=== PATIENT | male | born 1945 | race Caucasian/White ===

== ENCOUNTER 2016-08-07 10:57 | Observation (INO) | payer MEDICARE ==
[~2016-08-07] VITALS: Ht 175.3 cm; Wt 109.3 kg
[2016-08-07] MEDS ORDERED: ALBUAER3 INH (14:45)
[2016-08-07] MEDS ORDERED: METO100T PO (14:45)
[2016-08-07] MEDS ORDERED: FENO1CAP29 PO (14:45)
[2016-08-07] MEDS ORDERED: ASPI-110 PO (14:45)
[2016-08-07] MEDS ORDERED: SYMB160A INH (14:45)
[2016-08-07] MEDS ORDERED: VITA100064 PO (14:45)
[2016-08-07] MEDS ORDERED: ROSU40 PO (14:45)
[2016-08-07] MEDS ORDERED: VITA200013 (14:45)
[2016-08-07] MEDS ORDERED: PLAV75TA29 PO (14:45)
[2016-08-07] MEDS ORDERED: SERT-129 PO (14:45)
[2016-08-07] MEDS ORDERED: VALS1TAB70 PO (14:45)
[2016-08-07] MEDS ORDERED: MULT1TAB84 PO (14:45)
[2016-08-12] VITALS (7 sets, daily range): BP systolic 120–158; BP diastolic 72–100; PULSE 71–90; RESP 18; TEMP 97.4–98; O2SAT 93–98
[2016-08-12] MEDS ORDERED: PROTAMINE SULFATE 50 MG/5 ML VIAL ONE (07:11)
[2016-08-12] MEDS ORDERED: HEPARIN SODIUM - IV 10,000 UNITS/10 ML VIAL ONE (07:11)
[2016-08-12] MEDS ORDERED: POVIDONE IODINE 5% (ANTISEPSIS KIT) 4 APPLICATIONS EACH NARE PRN (07:45)
[2016-08-12] MEDS ORDERED: CHLORHEXIDINE GLUCONATE 2 % 1 PACK (2 CLOTHS) TOPICAL PRN (07:45)
[2016-08-12] MEDS ORDERED: SODIUM CHLORID 0.9% 500 ML IV PRN (07:45)
[2016-08-12] MEDS ORDERED: METOPROLOL TARTRATE 25 MG TAB PO PRN (07:45)
[2016-08-12] MEDS ORDERED: LACTATED RINGER'S 1000 ML IV PRN (07:45)
[2016-08-12] MEDS ORDERED: INSULIN HUMAN REGULAR 1,000 UNITS/10 ML VIAL SQ PRN (07:45)
[2016-08-12] MEDS ORDERED: fentaNYL CITRATE 250 MCG/5 ML AMP ONE (08:14)
[2016-08-12] MEDS ORDERED: MIDAZOLAM HCL 2 MG/2 ML VIAL ONE (08:14)
[2016-08-12] MEDS ORDERED: FAMOTIDINE 20 MG/2 ML VIAL ONE (08:15)
[2016-08-12] MEDS ORDERED: DEXAMETHASONE SOD PHOS 4 MG/ML VIAL ONE (08:15)
--- NOTE | 2016-08-12 08:26 | PD.VS.PN ---
Pre-operative Note Pre-operative diagnosis: enlarging AAA after EVAR and EVAR revision Planned procedure: EVAR revision, possible embolization Interval History: Pt has been feeling well since I saw him in clinic. No change in history. Ready for surgery. Labs: Hct 44 plt 193 INR 1.0 Blood: T&S Orders: NPO Ancef 2g IV OCTOR Post-operative destination: PACU, then [facility] Operative site marked: No (B groin surgery) Consent: Informed consent has been obtained from Karthik Ricardo. I have explained the procedure in detail and discussed the risks, benefits, and potential complications. All questions have been answered. Patient contact information: [phone] Daniel Gibson MD Aug 12, 2016 08:26
[2016-08-12] MEDS ORDERED: ceFAZolin 2 GM PREMIX 50 ML ONE (08:50)
[2016-08-12] MEDS ORDERED: IOHEXOL 300 MG/ML 100 ML BTL (for Rad CT) OTHER ONE (09:10)
--- NOTE | 2016-08-12 09:54 | HHI.PR ---
Immediate Post Op Note Procedure Date: Aug 12, 2016 Pre Op Diagnosis: EVAR with possible endoleak Post Op Diagnosis: EVAR with type II endoleak, no types I or III Surgeon: Daniel Gibson Electric Plater(s): none Procedure: Aortogram IVCavagram IVUS Findings: type II endoleak, no type I or III Complications: none apparent Specimen(s) removed: none Estimated blood loss: 10 mL Anesthesia: General Drains: None Fluids: 1200 mL x'oid Patient to: PACU Patient Condition: Good Implant/Devices: SEE IMPLANT LOG (if applicable) Date/Time of Procedure: SEE SURGICAL CARE RECORD Daniel Gbison MD Aug 12, 2016 09:54
[2016-08-12] MEDS ORDERED: ALBUTEROL SULFATE 90 MCG/ACT HFA 18 GM INHALER INH PRN (10:45)
[2016-08-12] MEDS ORDERED: DO NOT ADM ANY ANTICOAGULANT DRUGS PRN (11:15)
[2016-08-12] MEDS ORDERED: IOHEXOL 300 MG/ML 50 ML BTL (for RAD DIAG) ONE (12:54)
[2016-08-12] MEDS ORDERED: ePHEDrine/NS 25 MG/5 ML SYR IV ONE (12:57)
[2016-08-12] MEDS ORDERED: PROPOFOL 200 MG/20 ML AMP IV ONE (12:57)
[2016-08-12] MEDS ORDERED: PHENYLEPH/NS 1000 MCG/10 ML SYR IV ONE (12:58)
[2016-08-12] MEDS ORDERED: NEOSTIGMINE 3 MG/3 ML SYR IV ONE (12:58)
[2016-08-12] MEDS ORDERED: NORMOSOL R INJ 1,000 ML IV ONE (12:58)
[2016-08-12] MEDS ORDERED: ONDANSETRON HCL 4 MG/2 ML VIAL IV PUSH ONE (12:58)
[2016-08-12] MEDS: SERTRALINE HCL 100 MG TAB PO SCH (21:04)
[2016-08-13] VITALS (29 sets, daily range): BP systolic 88–143; BP diastolic 53–83; PULSE 65–94; RESP 17–18; TEMP 97.5–98; O2SAT 95–98
[2016-08-13 06:01] LABS: HEMATOCRIT 43.1 % (39.0-51.0); MEAN CELL VOLUME 87.7 FL (80.0-100.0); MEAN CORPUSCULAR HEMOGLOBIN 29.1 PG (27.0-34.0); MEAN CORPUSCULAR HGB CONC 33.1 % (32.0-36.0); PLATELET COUNT 166 TH/MM3 (150-450); RED BLOOD COUNT 4.91 MIL/MM3 (4.50-5.90); RED CELL DISTRIBUTION WIDTH 13.8 % (11.6-17.2); REVIEW FLAG FINAL; WHITE BLOOD COUNT 12.9 TH/MM3 (4.0-11.0)
[2016-08-13 06:33] LABS: BICARBONATE 29.5 MEQ/L (21.0-32.0)
--- NOTE | 2016-08-13 06:58 | PD.VS.PN ---
Subjective POD #: 1 Procedure(s): Angiogram/venogram for EVAR with endoleak that turned out to be type II Subjective/Hospital Course No operative intervention required yesterday because turned out to be type II No abdominal pain overnight Was retaining urine and finn placed for bladder scan with 1000mL Objective Vitals/I&O Date Time Temp Pulse Resp B/P Pulse Ox O2 Delivery O2 Flow Rate FiO2 08/13/16 06:00 90 08/13/16 05:00 90 08/13/16 04:20 98.0 93 18 107/70 98 08/13/16 04:00 84 08/13/16 03:10 98 Room Air 08/13/16 03:00 82 08/13/16 02:00 84 08/13/16 01:00 84 08/13/16 00:00 79 08/12/16 23:40 98.0 90 18 156/93 98 08/12/16 23:00 94 Room Air 08/12/16 23:00 74 08/12/16 23:00 97.8 74 18 144/86 94 08/12/16 19:00 97.4 89 18 149/95 93 08/12/16 19:00 93 Room Air 08/12/16 15:15 Room Air 08/12/16 15:15 97.8 78 18 158/100 94 08/12/16 15:15 78 08/12/16 13:09 97 Nasal Cannula 3.00 08/12/16 11:25 3 Nasal Cannula 3.00 08/12/16 11:25 71 08/12/16 11:25 97.4 71 18 120/72 98 08/12/16 11:00 69 20 93/63 98 Nasal Cannula 3 08/12/16 10:45 73 20 93/57 96 Nasal Cannula 4 08/12/16 10:26 97.4 75 20 119/66 96 Simple Mask 6 08/12/16 07:35 98.0 71 18 151/92 97 Exam: abd soft, NT groin ok Finn with clear urine Laboratory Laboratory Tests Test 08/12/16 08/12/16 08/13/16 07:45 07:50 05:53 Blood Type A POSITIVE A POSITIVE Antibody Screen NEGATIVE Crossmatch Leukocyte-Reduced Red Blood Cells Blood Bank Comment White Blood Count 12.9 Red Blood Count 4.91 Hemoglobin 14.3 Hematocrit 43.1 Mean Corpuscular Volume 87.7 Mean Corpuscular Hemoglobin 29.1 Mean Corpuscular Hemoglobin 33.1 Concent Red Cell Distribution Width 13.8 Platelet Count 166 Mean Platelet Volume 7.7 Sodium Level 141 Potassium Level 4.0 Chloride Level 104 Carbon Dioxide Level 29.5 Anion Gap 8 Blood Urea Nitrogen 15 Creatinine 1.01 Estimat Glomerular Filtration 73 Rate Random Glucose 122 Calcium Level 9.2 Assessment and Plan Plan OOB ad rhys reg diet Andres mendez in a.m. 08/14 Discharge Planning D/c tomorrow hopefully without Daniel Drew MD Aug 13, 2016 06:57
[2016-08-13] MEDS: VALSARTAN 160 MG TAB PO SCH (08:42)
[2016-08-13] MEDS: FENOFIBRATE 145 MG TAB PO SCH (08:42)
[2016-08-13] MEDS: CLOPIDOGREL 75 MG TAB PO SCH (08:42)
[2016-08-13] MEDS: METOPROLOL TARTRATE 100 MG TAB PO SCH (08:42)
[2016-08-13] MEDS: CHOLECALCIFEROL (VIT D3) 1000 UNIT TAB PO SCH (08:43)
[2016-08-13] MEDS: MULTIVITAMINS/MINERALS THERAPEUTIC TAB PO SCH (08:43)
[2016-08-13] MEDS: ENOXAPARIN SODIUM 30 MG/0.3 ML SYRINGE SQ SCH (08:43)
[2016-08-13] MEDS: ASPIRIN EC 81 MG TABEC PO SCH (08:43)
[2016-08-13] MEDS: ATORVASTATIN 80 MG TAB PO SCH (08:45)
[2016-08-13] MEDS: SERTRALINE HCL 100 MG TAB PO SCH (20:21)
[2016-08-14] VITALS (15 sets, daily range): BP systolic 125–137; BP diastolic 75–91; PULSE 61–90; RESP 18; TEMP 97.5–98.2; O2SAT 95–97
[2016-08-14 06:45] LABS: BICARBONATE 31.5 MEQ/L (21.0-32.0); POTASSIUM 3.9 MEQ/L (3.5-5.1)
--- NOTE | 2016-08-14 07:18 | PD.VS.PN ---
Subjective POD #: 2 Procedure(s): Angiogram/venogram for EVAR with endoleak that turned out to be type II Subjective/Hospital Course Pt doing well, no abdominal or groin pain. Walking Cole po. Campos removed this morning. Objective Vitals/I&O Date Time Temp Pulse Resp B/P Pulse Ox O2 Delivery O2 Flow Rate FiO2 08/14/16 05:00 90 08/14/16 05:00 75 08/14/16 04:31 98.2 69 18 137/75 95 08/14/16 04:00 86 08/14/16 03:00 82 08/14/16 02:00 82 08/14/16 01:11 96 Room Air 08/14/16 01:00 78 08/14/16 00:00 74 08/13/16 23:33 98.0 74 18 143/83 98 08/13/16 23:00 69 08/13/16 22:00 82 08/13/16 21:00 78 08/13/16 20:00 82 08/13/16 19:45 98.0 76 18 116/76 98 08/13/16 19:45 96 Room Air 08/13/16 19:00 79 08/13/16 18:03 75 08/13/16 17:17 73 08/13/16 16:10 71 08/13/16 15:53 95 Room Air 08/13/16 15:17 97.9 70 18 104/69 95 08/13/16 15:00 65 08/13/16 14:00 68 08/13/16 13:00 66 08/13/16 12:46 70 08/13/16 12:10 95 Room Air 08/13/16 11:29 97.5 77 88/53 95 98/67 08/13/16 11:00 83 08/13/16 10:41 73 08/13/16 09:00 92 08/13/16 08:00 94 08/14/16 08/14/16 08/14/16 07:00 15:00 23:00 Intake Total 480 ml Output Total 1000 ml Balance -520 ml Exam: R groin with mild ecchymoses no hematoma Laboratory Laboratory Tests Test 08/14/16 05:57 Sodium Level 141 Potassium Level 3.9 Chloride Level 103 Carbon Dioxide Level 31.5 Anion Gap 7 Blood Urea Nitrogen 16 Creatinine 0.95 Estimat Glomerular Filtration 79 Rate Random Glucose 100 Calcium Level 9.0 Assessment and Plan Plan doing well await to see if voids If so, can be d/c today with RTC 6 weeks with CTA post-op EVAR (3 phase) If not able to void, will replace Campos and D/C home with Campos. He has a local urologist should that be needed. Discharge Planning Today with or without Campos Daniel Gibson MD Aug 14, 2016 07:18
--- NOTE | 2016-08-14 07:41 | MP ---
cc: DANIEL GIBSON MD DATE OF SURGERY 08/12/2016 PREOPERATIVE DIAGNOSIS Endoleak after abdominal aortic aneurysm. POSTOPERATIVE DIAGNOSIS Type II endoleak. PROCEDURE 1. Aortogram. 2. Inferior venacavogram. 3. Intravascular ultrasound of inferior vena cava. ATTENDING SURGEON Daniel Gibson MD ANESTHESIA General. INDICATIONS Mr. Ricardo is a 70-year-old gentleman with a history of an EVAR sometime ago. He was noted to have an enlarging aneurysm sac potentially and was taken to the operating room for angiographic evaluation and potential treatment. A preoperative CT scan was inadequate to determine the source of the endoleak. DESCRIPTION OF PROCEDURE Informed consent obtained. The patient was taken to the operating room and placed supine on the operating room table. An appropriate time-out was taken to identify the patient, the operative site and the planned procedure. 2 grams of Kefzol was initiated prior to the skin incision and will be discontinued after a single preoperative dose. Everyone in the room agreed with the time-out and we proceeded. He was prepped from his nipples to his knees. A 21-gauge micropuncture needle was used to access the right common femoral artery. This was exchanged using Seldinger technique through the micropuncture sheath through which a 0.025 Stork wire was introduced and the micropuncture sheath was exchanged for a 5-Panamanian sheath. A VCF catheter was placed over the wire into the sheath and the aortogram in multiple obliquities was obtained. This aortogram showed that there was no Type I or III endoleak but appeared to be a Type II endoleak. We then attempted to perform a transcaval embolization. A 21-gauge micropuncture needle was used to access the right common femoral vein. This exchanged using Seldinger technique through the micropuncture sheath through which a 0.025 Stork wire was introduced and the micropuncture sheath was exchanged for an 8-Panamanian sheath. Intravascular ultrasound catheter was placed over the wire and into the sheath. Ultrasound images were obtained and this showed the direct apposition of the aneurysm sac with the inferior vena cava. The IVUS catheter was removed and the Stork wire was reintroduced. The 8-Panamanian sheath was upsized to a 10-Panamanian sheath and a Rosch-Uchida needle puncture kit was attempted to be placed. Multiple passes were made but we were unable to enter the aortic sac. At completion the venacavogram showed no contrast extravasation of the retroperitoneum. The wire, catheter and sheath were removed and pressure was held on the vein. The 5-Panamanian sheath in the artery was removed and the artery was closed with AngioSeal. There were no complications. I was present and scrubbed and performed the entire procedure. Daniel Gibson MD RJCarl/SSB /9:32 PM /7:20 AM
[2016-08-14] MEDS: VALSARTAN 160 MG TAB PO SCH (09:00)
[2016-08-14] MEDS: CHOLECALCIFEROL (VIT D3) 1000 UNIT TAB PO SCH (09:12)
[2016-08-14] MEDS: MULTIVITAMINS/MINERALS THERAPEUTIC TAB PO SCH (09:12)
[2016-08-14] MEDS: ATORVASTATIN 80 MG TAB PO SCH (09:14)
[2016-08-14] MEDS: ASPIRIN EC 81 MG TABEC PO SCH (09:14)
[2016-08-14] MEDS: FENOFIBRATE 145 MG TAB PO SCH (09:14)
[2016-08-14] MEDS: CLOPIDOGREL 75 MG TAB PO SCH (09:14)
[2016-08-14] MEDS: METOPROLOL TARTRATE 100 MG TAB PO SCH (09:14)
[2016-08-14] MEDS: ENOXAPARIN SODIUM 30 MG/0.3 ML SYRINGE SQ SCH (09:14)
--- NOTE | 2016-08-14 09:19 | PD.VS.DC ---
Discharge Summary Admission Date: Aug 12, 2016 at 06:39 Discharge Date: Aug 14, 2016 Admission Diagnosis: (1) AAA (abdominal aortic aneurysm) Discharge Diagnosis: (1) AAA (abdominal aortic aneurysm) Status: Chronic Brief History from admission Pt admitted for potential enlarging AAA after EVAR/ Surgical intervention and EVAR revision Procedure(s): Angiogram/venogram for EVAR with endoleak that turned out to be type II Significant Findings GENERAL: A&OX3, NAD, GCS15 SKIN: Warm and dry. Right groin with ecchymosis, NO D/R/S NECK: Supple, No JVD CARDIOVASCULAR: +S1,S2 RESPIRATORY: Breath sounds equal and clear bilaterally. No accessory muscle use. GASTROINTESTINAL: Abdomen soft, non-tender, nondistended. Laboratory Tests Test 08/13/16 08/14/16 05:53 05:57 White Blood Count 12.9 TH/MM3 (4.0-11.0) Estimat Glomerular Filtration 73 ML/MIN (>89) 79 ML/MIN (>89) Rate Random Glucose 122 MG/DL (74-106) Hospital Course: Pt admitted for potential enlarging AAA after EVAR/ Surgical intervention and EVAR revision Surgical intervention/EVAR revision, possible embolization No operative intervention was required because it turned out to be type II Pt had No abdominal pain to report, he was c/o retaining urine and finn was placed for bladder scanner resulted with 1000mL of retained urine Finn removed today and patient was unable to urinate several hours later with 650ML retention per bladder scanner, arranged OP F/U with his known urologist Dr. Candelaria on Friday (08/19/16). Finn Cath reinserted and will remain until F/U with Urologist Will see patient in our OPC for surveillance CTA on 09/20/16 Allergies Coded Allergies Type Severity Reaction Last Updated Verified No Known Allergies 08/07/16 No 08/12//17/174/18/174/18/174/19/ 06:00 18:00 06:00 18:00 06:00 18:00 Intake Total 3690 ml 240 ml 720 ml 480 ml Output Total 795 ml 2700 ml 1200 ml 1000 ml Balance 2895 ml -2460 ml -480 ml -520 ml Intake Oral 840 ml 240 ml 720 ml 480 ml IV Total 1150 ml Other 1700 ml Output Urine Total 775 ml 2700 ml 1200 ml 1000 ml Stool Total 0 ml Estimated Blood Loss 20 ml Laboratory Tests Test 08/12/16 08/12/16 08/13/16 08/14/16 07:45 07:50 05:53 05:57 Blood Type A POSITIVE A POSITIVE Antibody Screen NEGATIVE Crossmatch Leukocyte-Reduced Red Blood Cells Blood Bank Comment White Blood Count 12.9 TH/MM3 Red Blood Count 4.91 MIL/MM3 Hemoglobin 14.3 GM/DL Hematocrit 43.1 % Mean Corpuscular Volume 87.7 FL Mean Corpuscular Hemoglobin 29.1 PG Mean Corpuscular Hemoglobin 33.1 % Concent Red Cell Distribution Width 13.8 % Platelet Count 166 TH/MM3 Mean Platelet Volume 7.7 FL Sodium Level 141 MEQ/L 141 MEQ/L Potassium Level 4.0 MEQ/L 3.9 MEQ/L Chloride Level 104 MEQ/L 103 MEQ/L Carbon Dioxide Level 29.5 MEQ/L 31.5 MEQ/L Anion Gap 8 MEQ/L 7 MEQ/L Blood Urea Nitrogen 15 MG/DL 16 MG/DL Creatinine 1.01 MG/DL 0.95 MG/DL Estimat Glomerular Filtration 73 ML/MIN 79 ML/MIN Rate Random Glucose 122 MG/DL 100 MG/DL Calcium Level 9.2 MG/DL 9.0 MG/DL Procedure Category Date Status Time Heparin Inj (Heparin MED 08/12/16 Complete Inj) 07:11 Protamine Sulfate Inj MED 08/12/16 Complete (Protamine Sulfate 07:11 Lactated Ringer's MED 08/12/16 In Process 1000 Ml Inj (Lr 1000 M 07:45 Sodium Chlorid 0.9% MED 08/12/16 In Process 500 Ml Inj (Ns 500 M 07:45 Metoprolol Tartrate MED 08/12/16 In Process (Lopressor) 07:45 Povidone Iod 5% MED 08/12/16 In Process Antisepsis Kit 07:45 Chlorhexidine 2% MED 08/12/16 In Process Cloth (Chlorhexidine 07:45 Insulin Human Regular MED 08/12/16 In Process Inj (Novolin R Inj 07:45 Red Blood Cells (Rbc) BBK 08/12/16 In Process 07:42 Type And Screen BBK 08/12/16 In Process 07:42 Midazolam Inj (Versed MED 08/12/16 Complete Inj) 08:14 Fentanyl Inj MED 08/12/16 Complete (Fentanyl Inj) 08:14 Dexamethasone Inj MED 08/12/16 Complete (Decadron Inj) 08:15 Famotidine Inj MED 08/12/16 Complete (Pepcid Inj) 08:15 Cefazolin 2 Gm Premix MED 08/12/16 Complete (Ancef 2 Gm Premix 08:50 Iohexol 300 Inj (Rad MED 08/12/[address]) (Omnipaque 300 09:10 Place In Observation ADMITTING 08/12/16 Transmitted Code Status CODE 08/12/16 Transmitted 09:54 Vital Signs (Adult) GIOVANNA 08/12/16 In Process 09:54 Gas Engine Repairer / GIOVANNA 08/12/16 In Process Telemetry 09:54 Activity Oob Ad Yolanda GIOVANNA 08/12/16 In Process 09:54 ^ Precautions GIOVANNA 08/12/16 In Process 09:54 Diet Heart Healthy DIET 08/12/16 Transmitted Breakfast Basic Metabolic Panel LAB 08/13/16 Complete (Bmp) 06:00 Cbc No Diff, Includes LAB 08/13/16 Complete Plts 06:00 Oxycodone (Roxicodone) MED 08/12/16 In Process 10:00 Cholecalciferol MED 08/13/16 In Process (Vitamin D3) 09:00 Clopidogrel (Plavix) MED 08/13/16 In Process 09:00 Fenofibrate (Tricor) MED 08/13/16 In Process 09:00 Metoprolol Tartrate MED 08/13/16 In Process (Lopressor) 09:00 Multivitamins-Minerals MED 08/13/16 In Process Therap (Theragran 09:00 Sertraline (Zoloft) MED 08/12/16 In Process 21:00 Valsartan (Diovan) MED 08/13/16 In Process 09:00 Aspirin Ec (Ecotrin MED 08/13/16 In Process Ec) 09:00 Atorvastatin (Lipitor) MED 08/13/16 In Process 09:00 Albuterol Hfa Inh MED 08/12/16 In Process (Ventolin Hfa Inh) 10:45 Enoxaparin Inj MED 08/13/16 In Process (Lovenox Inj) 10:00 [facility] MED 08/12/16 Complete Information 11:15 Am Admit Pre Op Care [facility] 08/12/16 Complete Class Iv Pacu Ea 30 [facility] 08/12/16 Complete MIN General/Pacu [facility] 08/12/16 Complete Post Anesthesia Oxygen [facility] 08/12/16 Complete ^ Other Nursing Orders GIOVANNA 08/13/16 In Process 02:22 Basic Metabolic Panel LAB 08/14/16 Complete (Bmp) 06:00 Remove Urinary GIOVANNA 08/14/16 In Process Catheter 06:00 Attending Discharge DISCHARGE 08/14/16 Transmitted Order Vital Signs Date Time Temp Pulse Resp B/P Pulse Ox O2 Delivery O2 Flow Rate FiO2 08/14/16 08:00 68 08/14/16 07:00 72 08/14/16 07:00 97.6 80 18 129/91 97 08/14/16 05:00 90 08/14/16 05:00 75 08/14/16 04:31 98.2 69 18 137/75 95 08/14/16 04:00 86 08/14/16 03:00 82 08/14/16 02:00 82 08/14/16 01:11 96 Room Air 08/14/16 01:00 78 08/14/16 00:00 74 08/13/16 23:33 98.0 74 18 143/83 98 08/13/16 23:00 69 08/13/16 22:00 82 08/13/16 21:00 78 08/13/16 20:00 82 08/13/16 19:45 98.0 76 18 116/76 98 08/13/16 19:45 96 Room Air 08/13/16 19:00 79 08/13/16 18:03 75 08/13/16 17:17 73 08/13/16 16:10 71 08/13/16 15:53 95 Room Air 08/13/16 15:17 97.9 70 18 104/69 95 08/13/16 15:00 65 08/13/16 14:00 68 08/13/16 13:00 66 08/13/16 12:46 70 08/13/16 12:10 95 Room Air 08/13/16 11:29 97.5 77 88/53 95 98/67 08/13/16 11:00 83 08/13/16 10:41 73 08/13/16 09:00 92 08/13/16 08:00 94 08/13/16 07:00 97.9 92 17 104/69 98 08/13/16 07:00 98 Room Air 08/13/16 07:00 83 08/13/16 06:00 90 08/13/16 05:00 90 08/13/16 04:20 98.0 93 18 107/70 98 08/13/16 04:00 84 08/13/16 03:10 98 Room Air 08/13/16 03:00 82 08/13/16 02:00 84 08/13/16 01:00 84 08/13/16 00:00 79 08/12/16 23:40 98.0 90 18 156/93 98 08/12/16 23:00 94 Room Air 08/12/16 23:00 74 08/12/16 23:00 97.8 74 18 144/86 94 08/12/16 19:00 97.4 89 18 149/95 93 08/12/16 19:00 93 Room Air 08/12/16 15:15 Room Air 08/12/16 15:15 97.8 78 18 158/100 94 08/12/16 15:15 78 08/12/16 13:09 97 Nasal Cannula 3.00 08/12/16 11:25 3 Nasal Cannula 3.00 08/12/16 11:25 71 08/12/16 11:25 97.4 71 18 120/72 98 08/12/16 11:00 69 20 93/63 98 Nasal Cannula 3 08/12/16 10:45 73 20 93/57 96 Nasal Cannula 4 08/12/16 10:26 97.4 75 20 119/66 96 Simple Mask 6 08/12/16 07:35 98.0 71 18 151/92 97 Discharge Condition: Good Discharge Disposition: Discharge Home Discharge Instructions: Follow up in our OPC on 09/20/16 Follow up with your Urologist on Friday08/19/16 at 3:15 (scheduled appointment time) Call the office to report any new concerns Leslie LOYOLA [facility] [phone] Any questions or concerns: Call [facility] at [facility] [phone] Leslie Llamas [facility] Aug 14, 2016 09:19
== END 2016-08-14 14:45 | disposition home or self-care (01) ==
LOC: INTOOBSV 08-12 06:39 → HSDI 08-12 06:39 → EDUNIT# 08-12 08:30 → HCVR 08-12 11:20 → HCIN 08-12 23:08
PROVIDERS: ADMIT Surgery; ATTEND Surgery
DX: T82.330A Leakage of aortic (bifurcation) graft (replacement), initial encounter (principal); I71.4 Abdominal aortic aneurysm, without rupture; E78.5 Hyperlipidemia, unspecified; I12.9 Hypertensive chronic kidney disease with stage 1 through stage 4 chronic kidney disease, or unspecified chronic kidney disease; N18.9 Chronic kidney disease, unspecified; J44.9 Chronic obstructive pulmonary disease, unspecified; I25.2 Old myocardial infarction; Z96.659 Presence of unspecified artificial knee joint; E66.9 Obesity, unspecified; Z68.35 Body mass index [BMI] 35.0-35.9, adult; Z79.02 Long term (current) use of antithrombotics/antiplatelets; Z99.81 Dependence on supplemental oxygen; Z95.820 Peripheral vascular angioplasty status with implants and grafts; Y83.2 Surgical operation with anastomosis, bypass or graft as the cause of abnormal reaction of the patient, or of later complication, without mention of misadventure at the time of the procedure
CPT/HCPCS: 36010; 36200; 37252; 75630; 80048; 85027; 86850; 86900; 86901; 86920; C1753; C1769; G0378; J0690; J1100; J1644; J1650; J2250; J2370; J2405; J2710; J3010; J7120; Q9967; J2720

== ENCOUNTER → 2016-08-07 | Outpatient (CLI) | payer MEDICARE ==
[~2016-08-07] MED LIST: ALBUAER3 INH; ASPI-110 PO; FENO1CAP29 PO; METO100T PO; MULT1TAB84 PO; PLAV75TA29 PO; ROSU40 PO; SERT-129 PO; SYMB160A INH; VALS1TAB70 PO; VITA100064 PO; VITA200013
[2016-08-07 12:35] LABS: HEMATOCRIT 44.3 % (39.0-51.0); MEAN CELL VOLUME 88.4 FL (80.0-100.0); MEAN CORPUSCULAR HEMOGLOBIN 29.1 PG (27.0-34.0); MEAN CORPUSCULAR HGB CONC 32.9 % (32.0-36.0); PLATELET COUNT 193 TH/MM3 (150-450); RED BLOOD COUNT 5.02 MIL/MM3 (4.50-5.90); RED CELL DISTRIBUTION WIDTH 13.6 % (11.6-17.2); REVIEW FLAG FINAL
[2016-08-07 12:41] LABS: APTT (PATIENT) 27.9 SEC (24.3-30.1)
--- NOTE | 2016-08-07 12:50 | RADRPT ---
EXAM DATE/TIME: 08/07/2016 12:36 [place] COMPARISON: No previous studies available for comparison. INDICATIONS : Evaluate for pneumonia, pneumothorax and communicable diseases. Pre-op for AAA surgery. MEDICAL HISTORY : Chronic obstructive pulmonary disease. SURGICAL HISTORY : Coronary artery stent. ENCOUNTER: Initial ACUITY: 1 day PAIN SCORE: 0/10 LOCATION: chest FINDINGS: PA and lateral views of the chest demonstrate the lungs to be symmetrically aerated without evidence of mass, infiltrate or effusion. The cardiomediastinal contours are unremarkable. Osseous structure s are intact. CONCLUSION: No acute disease. Beau Vance MD on August 07, 2016 at 12:48 Board Certified Radiologist. This report was verified electronically.
[2016-08-07 13:05] LABS: BICARBONATE 30.6 MEQ/L (21.0-32.0); POTASSIUM 3.9 MEQ/L (3.5-5.1)
--- NOTE | 2016-08-08 17:23 | EKG ---
Date Performed: 08/07/2016 Time Performed: 12:02:30 PTAGE: 70 years EKG: SINUS BRADYCARDIA WITH OCCASIONAL VENTRICULAR PREMATURE COMPLEXES RIGHT BUNDLE BRANCH BLOCK ABNORMAL ECG INTERPRETATION BASED ON A DEFAULT AGE OF 41 YEARS NO PREVIOUS TRACING DOCTOR: Alf Dunne Interpretating Date/Time 08/08/2016 17:21:46
== END ==
LOC: CPRE 10:52
PROVIDERS: ATTEND Surgery
DX: Z01.810 Encounter for preprocedural cardiovascular examination (principal); Z01.811 Encounter for preprocedural respiratory examination; Z01.812 Encounter for preprocedural laboratory examination; I71.4 Abdominal aortic aneurysm, without rupture; R94.31 Abnormal electrocardiogram [ECG] [EKG]
CPT/HCPCS: 36415; 71020; 80048; 85027; 85610; 85730; 93005